=== PATIENT | female | born 1950 | race Caucasian/White ===

== ENCOUNTER 2020-07-28 10:50 | Emergency (ER) | payer MEDICARE, OTHER ==
[~2020-07-28] VITALS: Ht 157.5 cm; Wt 81.8 kg
[~2020-07-28 10:50] MED LIST: DIVA-37 PO; FAMO-1 PO; FERR324T PO; PRED10TA23 PO
[2020-07-28 11:16] VITALS: BP 150/67
[2020-07-28 11:53] LABS: CLARITY,URINE CLEAR (Clear); COLOR,URINE STRAW (Yellow); GLUCOSE, URINE NEGATIVE (Neg); KETONES,URINE NEGATIVE (Neg); LEUKOCYTE ESTERASE ,URINE TRACE (Neg); NITRITES, URINE NEGATIVE (Neg); OCCULT BLOOD,URINE TRACE-INTACT (Neg); PROTEIN,URINE 100 mg/dl (Neg); UROBILINOGEN,URINE 0.2 E.U/dL (0.2-1.0)
[2020-07-28 12:04] LABS: URINE AMPHETAMINE SCREEN NEGATIVE (Neg); URINE BARBITUATE SCREEN NEGATIVE (Neg); URINE BENZODIAZEPINES SCREEN NEGATIVE (Neg); URINE CANNABINOID SCREEN NEGATIVE (Neg); URINE COCAINE SCREEN NEGATIVE (Neg); URINE METHADONE SCREEN NEGATIVE (Neg); URINE OPIATE SCREEN NEGATIVE (Neg); URINE PHENCYCLIDINE SCREEN NEGATIVE (Neg)
[2020-07-28 12:07] LABS: UA COLLECTION TYPE VOIDED
[2020-07-28 12:09] LABS: FINE GRANULAR CAST 0-3 /LPF (NEGATIVE); HYALINE CASTS 0-3 /LPF (NEGATIVE); RENAL CELLS, URINE FEW /HPF; SQUAMOUS EPITHELIAL CELL,UR FEW /LPF (FEW)
[2020-07-28 12:11] LABS: BACTERIA,URINE NONE SEEN /HPF (Neg); RBC,URINE 0-2 /HPF (0-2); WBC,URINE 0-4 /HPF (0-4)
--- NOTE | 2020-07-28 12:34 | NUR ---
SON HAM HONG [phone] SALMA HONG [phone] BOTH OK FOR INFORMATION PER PT
[2020-07-28 12:42] LABS: BASOPHILS % (AUTO) 0.6 % (0-1); EOSINOPHILS # (AUTO) 0.2 X10'3 (0-0.9); EOSINOPHILS % (AUTO) 3.5 % (0-6); HEMATOCRIT 34.3 % (35.0-45.0); HEMOGLOBIN 11.1 g/dl (12.0-16.0); LYMPHOCYTES # (AUTO) 1.4 X10'3 (1.1-4.8); LYMPHOCYTES % (AUTO) 22.7 % (21-51); MEAN CORPUSCULAR HEMOGLOBIN 30.7 PG (27.0-31.0); MEAN CORPUSCULAR HGB CONC 32.4 g/dL (33.0-36.5); MEAN CORPUSCULAR VOLUME 94.9 FL (78-98); MEAN PLATELET VOLUME 8.8 FL (7.4-10.4); MONOCYTES # (AUTO) 0.6 X10'3 (0-0.9); MONOCYTES % (AUTO) 8.9 % (2-12); NEUTROPHILS # (AUTO) 4.1 X10'3 (1.8-7.7); NEUTROPHILS % (AUTO) 64.3 % (42-75); PLATELET COUNT 203 X10'3 (140-440); RED BLOOD COUNT 3.61 X10'6 (4.20-5.60); RED CELL DISTRIBUTION WIDTH 14.9 % (11.5-14.5); WHITE BLOOD COUNT 6.4 X10'3 (4.5-11.0)
--- NOTE | 2020-07-28 12:49 | NUR ---
PT WITH ONE MONTH RECENT CHANGE TO MEDICATIONS: CHANGE FROM NAME BRAND DEPAKOTE TO GENERIC, SON STATES HE THINKS THIS MAY BE CONTRIBUTING. PT STATES SHE HAS BEEN REALLY STRESSED LATELY, "I JUST DONT WANT TO BE ALIVE." HER SUICIDE PLAN IS TO "POISON MYSELF WITH RAT POISON AND EAT A LOT OF SUGAR BECAUSE IT IS BAD FOR MY KIDNEYS." SON HAM WISHES TO BE INVOLVED IN TXMT PLAN.
[2020-07-28 12:56] LABS: ALANINE AMINOTRANSFERASE 7 U/L (12-78); ALBUMIN/GLOBULIN RATIO 0.8 (1.1-1.5); ALKALINE PHOSPHATASE 99 IU/L (46-116); ANION GAP 14 (8-16); ASPARTATE AMINO TRANSFERASE 11 U/L (10-37); BILIRUBIN,TOTAL 0.2 MG/DL (0.1-1.0); BLOOD UREA NITROGEN 39 MG/DL (7-18); BUN/CREATININE RATIO 16.2 (6.6-38.0); CALCIUM 9.6 MG/DL (8.5-10.1); CHLORIDE 107 MMOL/L (99-107); CREATININE 2.41 MG/DL (0.40-0.90); GLUCOSE 87 MG/DL (70-104); SODIUM 145 MMOL/L (135-145); TOTAL CARBON DIOXIDE 23.9 MMOL/L (24-32); TOTAL PROTEIN 6.9 G/DL (6.4-8.2); eGFR 20 ML/MIN
[2020-07-28 13:13] LABS: ETHANOL < 0.010 GM/DL (0.0-0.010)
--- NOTE | 2020-07-28 13:19 | NUR ---
ASSIST PT TO AMB TO BATHROOM TO VOID. PROVIDE A WALKER FOR PT PER HER REQUEST.
--- NOTE | 2020-07-28 13:24 | NUR ---
PT GIVEN LUNCH TRAY.
--- NOTE | 2020-07-28 15:05 | NUR ---
DRESSED IN GREEN SCRUBS, PT VERY COOPERATIVE
[2020-07-28] MEDS ORDERED: DIVA500T9 PO (16:53)
[2020-07-28] MEDS ORDERED: ALLO100T PO (16:53)
[2020-07-28] MEDS ORDERED: CETI-90 PO (16:53)
[2020-07-28] MEDS ORDERED: CALC0.2511 PO (16:53)
[2020-07-28] MEDS ORDERED: ASCO100T12 PO (16:53)
[2020-07-28] MEDS ORDERED: ATOR20TA PO (16:53)
[2020-07-28] MEDS ORDERED: LEVO50TA PO (16:53)
[2020-07-28] MEDS ORDERED: ASPI-1265 PO (16:53)
[2020-07-28] MEDS ORDERED: ESCI5TAB17 PO (16:53)
[2020-07-28] MEDS ORDERED: FERR325T28 PO (16:53)
[2020-07-28] MEDS ORDERED: MIRA50TA PO (16:53)
== END 2020-07-28 15:54 | disposition home or self-care (01) ==
LOC: ER 10:50
DX: R45.851 Suicidal ideations (principal); I10 Essential (primary) hypertension; F31.9 Bipolar disorder, unspecified; Z88.0 Allergy status to penicillin; Z79.899 Other long term (current) drug therapy
CPT/HCPCS: 80053; 80305; 80320; 81001; 84443; 85025; 99285